=== PATIENT | female | born 1990 | race Caucasian/White ===

== ENCOUNTER 2021-03-16 05:18 | Inpatient (IN) | payer OTHER ==
[2021-03-16] MEDS ORDERED: PROMETHAZINE HCL 25 MG/1 ML VIAL IVPB ONE (06:00)
[2021-03-16] MEDS ORDERED: BUTORPHANOL TARTRATE 2 MG/ML VIAL IVPB ONE (06:00)
[2021-03-16] MEDS ORDERED: DEXTROSE 5%-LACTATED RINGERS 1,000 ML IV SCH (06:30)
[2021-03-16 07:14] VITALS: BMI 44.1
[2021-03-16] MEDS ORDERED: PROMETHAZINE HCL 25 MG/1 ML VIAL ONE (07:17)
[2021-03-16] MEDS ORDERED: BUTORPHANOL TARTRATE 2 MG/ML VIAL ONE (07:17)
[2021-03-16] MEDS ORDERED: ELECTROLYTE-148 SOLN 1,000 ML IV SCH ×2 (07:30→08:00)
[2021-03-16] MEDS ORDERED: FENTANYL/BUPIVACAINE/NS/PF - PCEA - 50 ML DISP.SYRIN EP ONE ×2 (07:50→13:04)
[2021-03-16 07:52] LABS: BASO % 0.2 % (0-2.0); EOS % 0.7 % (0-4.5); HEMATOCRIT 36.3 % (32.4-45.2); LYMPH % 14.6 % (8-40); MCH 27.6 pg (25.7-33.7); MCHC 33.1 g/dl (32.0-36.0); MEAN CELL VOLUME 83.6 fl (80-96); MEAN PLT VOLUME 9.8 fl (7.5-11.1); MONO % 5.3 % (3.8-10.2); NEUT % 79.2 % (42.8-82.8); PLATELET COUNT 217 10^3/uL (134-434); RBC 4.35 M/mm3 (3.60-5.2); RDW 15.4 % (11.6-15.6); WHITE BLOOD COUNT 10.4 K/mm3 (4.0-10.0)
[2021-03-16] MEDS ORDERED: PCA PUMP NR ONE (07:52)
[2021-03-16] MEDS ORDERED: BUPIVACAINE HCL/PF 0.25% (2.5MG/ML) 10 ML VIAL ONE (07:58)
[2021-03-16] MEDS ORDERED: LIDOCAINE HCL 1% PRESERVATIVE FREE - 30ML VIAL ONE (08:02)
[2021-03-16 08:16] LABS: CALCIUM 9.1 mg/dL (8.5-10.1)
[2021-03-16 08:17] LABS: BLOOD UREA NITROGEN 9.8 mg/dL (7-18)
[2021-03-16 08:20] LABS: CREATININE 0.7 mg/dL (0.55-1.3)
[2021-03-16] MEDS: FENTANYL/BUPIVACAINE/NS/PF - PCEA - 50 ML DISP.SYRIN EP SCH ×2 (08:20→13:08)
[2021-03-16] MEDS ORDERED: NALOXONE HCL 0.4 MG/ML VIAL IVPUSH PRN (09:46)
[2021-03-16 09:52] LABS: COCAINE, UR NEGATIVE (NEGATIVE); METHADONE, UR NEGATIVE (NEGATIVE); OPIATES, URI NEGATIVE (NEGATIVE); URINE BENZODIAZEPINES NEGATIVE (NEGATIVE)
[2021-03-16 09:53] LABS: URINE BARBITURATES NEGATIVE (NEGATIVE)
[2021-03-16 09:54] LABS: PHENCYCLIDINE,URINE NEGATIVE (NEGATIVE); URINE AMPHETAMINES NEGATIVE (NEGATIVE)
[2021-03-16 09:56] LABS: INR 0.92 (0.83-1.09); PROTHROMBIN TIME (PATIENT) 11.3 SEC (9.7-13.0)
[2021-03-16] MEDS ORDERED: FENTANYL/BUPIVACAINE/NS/PF - PCEA - 50 ML DISP.SYRIN EP SCH (10:15)
[2021-03-16] MEDS ORDERED: OXYTOCIN 30 UNITS in 0.9% NS 30 UNIT/500 ML INFUS.BAG IVPB SCH (12:00)
[2021-03-16 12:54] LABS: HIV INTERPRETATION NEGATIVE (NEGATIVE)
[2021-03-16] MEDS ORDERED: OXYTOCIN 20 UNITS in 0.9% NS 20 UNIT/1,000 ML INFUS.BAG IV ONE ×3 (13:42→15:29)
[2021-03-16] MEDS ORDERED: IBUPROFEN 600 MG TABLET (FP) PO PRN (14:37)
[2021-03-16] MEDS ORDERED: BENZOCAINE 20% 57 GM BOTTLE TP PRN (14:37)
[2021-03-16] MEDS ORDERED: METHYLERGONOVINE MALEATE 0.2 MG/1 ML AMP IM PRN (14:37)
[2021-03-16] MEDS ORDERED: BENZOCAINE 28 GM HEMORRHOIDAL OINTMENT TP PRN (14:37)
[2021-03-16] MEDS ORDERED: WITCH HAZEL 50% (TUCKS) 40 PAD/JAR PAD TP PRN (14:37)
[2021-03-16] MEDS ORDERED: BISACODYL 10 MG SUPP.RECT RC PRN (14:37)
[2021-03-16] MEDS ORDERED: ACETAMINOPHEN 325 MG TABLET (FP) PO PRN (14:37)
[2021-03-16] MEDS ORDERED: OXYTOCIN 20 UNITS in 0.9% NS 20 UNIT/1,000 ML INFUS.BAG IV SCH (14:45)
[2021-03-16] MEDS: FERROUS SO4 325 MG TABLET (FP) PO SCH (22:52)
[2021-03-17] MEDS: FERROUS SO4 325 MG TABLET (FP) PO SCH ×2 (10:20→21:26)
[2021-03-17] MEDS: PRENATAL VITAMINS W/ FOLIC ACID TABLET (FP) PO SCH (10:20)
[2021-03-17 12:27] LABS: BASO % 0.2 % (0-2.0); EOS % 0.5 % (0-4.5); HEMATOCRIT 31.3 % (32.4-45.2); HEMOGLOBIN 10.4 GM/dL (10.7-15.3); LYMPH % 17.2 % (8-40); MCH 27.5 pg (25.7-33.7); MCHC 33.2 g/dl (32.0-36.0); MEAN PLT VOLUME 9.5 fl (7.5-11.1); MONO % 5.2 % (3.8-10.2); NEUT % 76.9 % (42.8-82.8); PLATELET COUNT 223 10^3/uL (134-434); RBC 3.77 M/mm3 (3.60-5.2); RDW 15.9 % (11.6-15.6)
[2021-03-17] MEDS ORDERED: SENNOSIDES/DOCUSATE COMBO (SENNA PLUS) TABLET (UD) PO PRN (22:00)
[2021-03-18] MEDS: FERROUS SO4 325 MG TABLET (FP) PO SCH (09:52)
[2021-03-18] MEDS: PRENATAL VITAMINS W/ FOLIC ACID TABLET (FP) PO SCH (09:52)
[2021-03-18 10:06] VITALS: BP 110/73; PULSE 78; TEMP 98.4
== END 2021-03-18 13:10 | disposition home or self-care (01) | DRG 807 ==
LOC: JDEL 05:18 → JLDR 06:00 → J3W 15:57
PROVIDERS: ADMIT Obstetrics & Gynecology; ATTEND Obstetrics & Gynecology
PROC: 10E0XZZ Delivery of Products of Conception, External Approach (ICD-10-PCS; principal; 2021-03-16)
DX: O99.214 Obesity complicating childbirth (principal); Z37.0 Single live birth; E66.01 Morbid (severe) obesity due to excess calories; O77.0 Labor and delivery complicated by meconium in amniotic fluid; Z3A.38 38 weeks gestation of pregnancy; Z91.013 Allergy to seafood; O99.03 Anemia complicating the puerperium; D64.9 Anemia, unspecified
CPT/HCPCS: 36415; 59409; 80048; 80307; 85025; 85610; 85730; 86850; 86900; 86901; 87389; C9803; U0003; U0005